=== PATIENT | male | born 1985 | race Caucasian/White ===

== ENCOUNTER 2017-01-14 13:51 | Emergency (ER) | payer MEDICAID | END 2017-01-14 21:20 | disposition home or self-care (01) | LOC: D.ER 13:51 | DX: S83.91XA Sprain of unspecified site of right knee, initial encounter (principal); X58.XXXA Exposure to other specified factors, initial encounter; Y93.89 Activity, other specified; Y92.019 Unspecified place in single-family (private) house as the place of occurrence of the external cause; F17.200 Nicotine dependence, unspecified, uncomplicated ==

== ENCOUNTER 2017-09-17 15:52 | Emergency (ER) | payer MEDICAID | END 2017-09-17 17:21 | disposition home or self-care (01) | LOC: D.ER 15:52 | DX: M25.562 Pain in left knee (principal); M10.062 Idiopathic gout, left knee; F17.200 Nicotine dependence, unspecified, uncomplicated ==

== ENCOUNTER 2017-10-05 17:17 | Emergency (ER) | payer MEDICAID | END 2017-10-05 19:04 | disposition home or self-care (01) | LOC: D.ER 17:17 | DX: M25.462 Effusion, left knee (principal) ==

== ENCOUNTER 2019-01-29 16:49 | Emergency (ER) | payer SELFPAY ==
[~2019-01-29] VITALS: Ht 157.5 cm; Wt 135.5 kg
[2019-01-29 17:14] VITALS: Ht 157.5 cm; Wt 135.5 kg
[2019-01-29] MEDS ORDERED: CLEOCIN HCL300 MG PO (18:36)
[2019-01-29 19:23] VITALS: BP 122/82
== END 2019-01-29 19:30 | disposition home or self-care (01) ==
LOC: D.ER 16:49
DX: K04.7 Periapical abscess without sinus (principal)